=== PATIENT | male | born 1955 | race Caucasian/White ===

== ENCOUNTER 2018-03-31 09:21 | Inpatient (IN) | payer OTHER ==
[2018-03-31] VITALS (33 sets, daily range): BP systolic 91–140; BP diastolic 50–123
[~2018-03-31] VITALS: Ht 190.5 cm; Wt 162.5 kg
[2018-03-31] MEDS ORDERED: ALBUTEROL SULF 0.083% NEB SOLN 3 ML NEB NEB STA (09:37)
[2018-03-31] MEDS ORDERED: ALBUTEROL/IPRATROPIUM 3 ML NEB NEB ONE (09:45)
[2018-03-31 10:18] LABS: BASOPHILS % 0.4 % (0.0-1.0); EOSINOPHILS # (AUTO) 0.2 (0.0-0.4); EOSINOPHILS % 2.3 % (0.0-6.0); HEMATOCRIT 52.2 % (38.2-49.6); HEMOGLOBIN 17.3 g/dL (14.0-18.0); LYMPHOCYTES # (AUTO) 1.7 (1.0-3.2); LYMPHOCYTES % 18.1 % (18.0-39.1); MEAN CORPUSCULAR HEMOGLOBIN 32.1 pg (28-32); MEAN CORPUSCULAR HGB CONC 33.1 g/dL (31-35); MEAN CORPUSCULAR VOLUME 96.8 fL (81-99); MONOCYTES % 10.6 % (4.4-11.3); NEUTROPHILS # (AUTO) 6.5 (2.1-6.9); NEUTROPHILS % 68.3 % (38.7-80.0); PLATELET COUNT 170 x10e3/uL (140-360); RED BLOOD COUNT 5.39 x10e6/uL (4.3-5.7); RED CELL DISTRIBUTION WIDTH 12.9 % (11.7-14.4)
[2018-03-31 10:39] LABS: ALANINE AMINOTRANSFERASE 20 IU/L (0-55); ALBUMIN 3.9 g/dL (3.5-5.0); ALBUMIN/GLOBULIN RATIO 1.3 (0.8-2.0); ALKALINE PHOSPHATASE 110 IU/L (40-150); BLOOD UREA NITROGEN 11 mg/dL (7-26); BUN/CREATININE RATIO 11 (6-25); CALCIUM 10.8 mg/dL (8.4-10.2); CARBON DIOXIDE 32 mmol/L (22-29); CHLORIDE 96 mmol/L (98-107); CREATINE KINASE 254 IU/L (30-200); CREATININE, SERUM 0.97 mg/dL (0.72-1.25); EST GLOMERULAR FILTRATION RATE > 60 ML/MIN (60-); GLUCOSE 251 mg/dL (74-118); LIPASE 19 U/L (8-78); SODIUM 137 mmol/L (136-145)
[2018-03-31 10:46] LABS: ABG HCO3 35 mmol/L (23-28); ABG PCO2 73 mmHg (41-51); ABG PH 7.29 (7.31-7.41); ABG PO2 84 mmHg (80-105)
[2018-03-31] MEDS: ALBUTEROL/IPRATROPIUM 3 ML NEB NEB SCH ×2 (11:00→16:17)
[2018-03-31] MEDS ORDERED: LIDOCAINE JELLY 2% 10ML URO-JET ONE (11:06)
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
[2018-03-31 11:28] LABS: CLARITY,URINE SL CLOUDY (CLEAR); COLOR,URINE AMBER (YELLOW); KETONES,URINE TRACE (NEGATIVE); LEUKOCYTE ESTERASE ,URINE TRACE (NEGATIVE); NITRITE,URINE NEGATIVE (NEGATIVE); PROTEIN,URINE DIPSTICK 2+ (NEGATIVE); URINE UROBILINOGEN 0.2 mg/dL (0.2 - 1)
[2018-03-31 11:29] LABS: BILIRUBIN,URINE 1+ (NEGATIVE)
[2018-03-31 11:42] LABS: AMORPHOUS SEDIMENT,URINE RARE (FEW); EPITHELIAL CELLS,URINE FEW /LPF; RBC,URINE >50 /HPF (0-5); WBC,URINE (MAN) 0-5 /HPF (0-5)
[2018-03-31] MEDS ORDERED: CEFTRIAXONE SOD 2 GM VIAL IV SCH (12:45)
[2018-03-31] MEDS ORDERED: ETOMIDATE 2 MG/ML 10 ML INJ IV STA (12:56)
[2018-03-31] MEDS ORDERED: SUCCINYLCHOLINE 200 MG/10 ML SYR IV STA (12:56)
[2018-03-31] MEDS ORDERED: PROPOFOL IV EMULSION 10MG/ML 100 ML ONE (13:00)
[2018-03-31 13:04] LABS: ABG PH 7.29 (7.31-7.41)
[2018-03-31 13:05] LABS: ABG HCO3 35 mmol/L (23-28); ABG PCO2 72 mmHg (41-51); ABG PO2 79 mmHg (80-105)
[2018-03-31] MEDS: FENTANYL CITRATE INJ 2,000 MCG in SODIUM CHLORIDE 0.9% 250ML 210 ML IV PRN (13:10)
[2018-03-31] MEDS: MIDAZOLAM HCL 25 MG in SODIUM CHLORIDE 0.9% 50ML 45 ML IV PRN ×2 (13:10→21:40)
[2018-03-31] MEDS ORDERED: SODIUM CHLORIDE 0.9% 1000ML 1,000 ML ONE ×2 (13:58→21:22)
[2018-03-31] MEDS ORDERED: ROCURONIUM BROMIDE 10 MG/ML 5ML VIAL IV ONE (14:18)
[2018-03-31] MEDS ORDERED: ROCURONIUM BROMIDE 2 ML ONE (14:20)
--- NOTE | 2018-03-31 14:24 | Diagnostic Imaging Report ---
EXAMINATION: CHEST SINGLE (PORTABLE) INDICATION: \S\ARF \[id number] \S\[id number] COMPARISON: None FINDINGS: AP view TUBES and LINES: Endotracheal tube overlying the mid trachea with tip 4 cm above the nida. LUNGS: Low lung volumes. Patchy airspace opacities remain in both lung bases. Bilateral interstitial edema. PLEURA: Possible small left pleural effusion. No pneumothorax. HEART AND MEDIASTINUM: Mild enlargement of the cardiac silhouette. BONES AND SOFT TISSUES: No acute osseous lesion. Soft tissues are unremarkable. UPPER ABDOMEN: No free air under the diaphragm. IMPRESSION: Mild cardiomegaly with associated interstitial edema. Denser patchy opacities in both lung bases may represent aspiration or infection. Signed by: Dr. Jyothi Gomez M.D. on 03/31/2018 2:21 PM
[2018-03-31 15:36] LABS: ABG PCO2 50 mmHg (41-51); ABG PH 7.44 (7.31-7.41); ABG PO2 321 mmHg (80-105)
[2018-03-31 15:37] LABS: ABG HCO3 34 mmol/L (23-28)
[2018-03-31] MEDS: FAMOTIDINE 20 MG/2 ML VIAL IV SCH (16:35)
[2018-03-31] MEDS: AZITHROMYCIN 500MG/NS 250 ML 250 ML IV SCH (16:35)
[2018-03-31] MEDS ORDERED: METOPROLOL TART25 MG PO (17:13)
[2018-03-31] MEDS ORDERED: LISINOPRIL10 MG PO (17:13)
[2018-03-31] MEDS ORDERED: FLUOXETINE HCL20 MG PO (17:13)
[2018-03-31] MEDS ORDERED: LAMOTRIGINE200 MG PO (17:13)
[2018-03-31] MEDS ORDERED: METFORMIN HCL500 MG PO (17:13)
[2018-03-31] MEDS ORDERED: SUCCINYLCHOLINE CHLORIDE 20 MG/ML 10ML VIAL ONE (19:17)
[2018-03-31] MEDS ORDERED: ETOMIDATE 40 MG/ 20ML VIAL IV ONE (19:17)
[2018-03-31 19:39] LABS: CREATINE KINASE MB 4.4 ng/mL (0-5.0)
[2018-03-31] MEDS ORDERED: SODIUM CHLORIDE 0.9% 1000ML 1,000 ML IV ONE (21:15)
--- NOTE | 2018-03-31 21:27 | Consultation ---
DATE OF CONSULTATION: March 31, 2018 REASON FOR CONSULTATION: Shortness of breath. HPI: Mr. Melchor is a 62-year-old male never been before here, presented to the emergency room with worsening shortness of breath. Patient is currently intubated sedated and the source of history is the chart. According to the emergency room chart, patient smokes 3 packs per day. She was having hallucination, confusion, and worsening mental status, so he was brought into the emergency room. He denies any cough or chills. In the emergency room, patient's blood gas was pH of 7.29, pCO2 of 73, pO2 84, O2 sat 94%, bicarb has been 32. REVIEW OF SYSTEMS: Unable to elicit any as patient is intubated, sedated. PAST MEDICAL HISTORY: Body habitus suggestive of obstructive sleep apnea, diabetes, hypertension, congestive heart failure. PAST SURGICAL HISTORY: Unknown. FAMILY AND SOCIAL HISTORY: Smoker, lives with , 3 packs per day. PHYSICAL EXAM VITALS: Temperature 96.7, pulse of 62, blood pressure 135/82, respiratory rate of 22. HEENT: Head atraumatic, normocephalic. NECK: Supple. CHEST: Crackles bilaterally. HEART: S1, S2 audible. ABDOMEN: Soft. EXTREMITIES: Pedal edema. NEUROLOGIC: Sedated, intubated. BNP was 20.5. Chest X-RAY: Reviewed, is showing bilateral alveolar infiltrate, dense base infiltrate, most on the right side. ASSESSMENT AND PLAN: Mr. Melchor is a 62-year-old male, who presented to the emergency room with worsening shortness of breath. CURRENT PROBLEMS 1. Ecuin-gy-pcrinsc hypoxic hypercapnic respiratory failure. 2. Pneumonia. 3. Hypertension. 4. Morbid obesity. 5. High likelihood of obstructive sleep apnea. PLAN 1. Ventilator setting reviewed. Continue the patient on current ventilator setting. pH is 7.4 and pCO2 with oxygen of 321. 2. IV antibiotics as ordered, Rocephin and azithromycin. Patient is coming from home. That should cover the pneumonia. 3. Fentanyl and Versed for sedation. 4. Nebulizer treatment, which has been ordered. 5. I will start the patient on Lovenox subcutaneous for DVT prophylaxis. CRITICAL CARE TIME SPENT: 50 minutes. Job#: [id number] CQ
[2018-03-31] MEDS: PIPER-TAZ 3.375 GM 50 ML IV SCH (21:39)
[2018-04-01] VITALS (81 sets, daily range): BP systolic 95–201; BP diastolic 62–117
[2018-04-01 02:51] LABS: CREATINE KINASE MB 3.2 ng/mL (0-5.0)
[2018-04-01 04:56] LABS: BASOPHILS % 0.3 % (0.0-1.0); EOSINOPHILS # (AUTO) 0.2 (0.0-0.4); EOSINOPHILS % 2.5 % (0.0-6.0); HEMATOCRIT 45.8 % (38.2-49.6); HEMOGLOBIN 15.2 g/dL (14.0-18.0); LYMPHOCYTES # (AUTO) 1.6 (1.0-3.2); LYMPHOCYTES % 19.8 % (18.0-39.1); MEAN CORPUSCULAR HEMOGLOBIN 32.1 pg (28-32); MEAN CORPUSCULAR HGB CONC 33.2 g/dL (31-35); MEAN CORPUSCULAR VOLUME 96.6 fL (81-99); MONOCYTES # (AUTO) 0.8 (0.2-0.8); MONOCYTES % 10.3 % (4.4-11.3); NEUTROPHILS # (AUTO) 5.3 (2.1-6.9); NEUTROPHILS % 66.8 % (38.7-80.0); PLATELET COUNT 138 x10e3/uL (140-360); RED BLOOD COUNT 4.74 x10e6/uL (4.3-5.7); RED CELL DISTRIBUTION WIDTH 13.1 % (11.7-14.4)
[2018-04-01 05:15] LABS: ANION GAP 12.5 mmol/L (8-16); BLOOD UREA NITROGEN 13 mg/dL (7-26); BUN/CREATININE RATIO 17 (6-25); CALCIUM 9.3 mg/dL (8.4-10.2); CARBON DIOXIDE 28 mmol/L (22-29); CHLORIDE 103 mmol/L (98-107); CREATININE, SERUM 0.76 mg/dL (0.72-1.25); EST GLOMERULAR FILTRATION RATE > 60 ML/MIN (60-); GLUCOSE 179 mg/dL (74-118); POTASSIUM 3.5 mmol/L (3.5-5.1); SODIUM 140 mmol/L (136-145)
[2018-04-01] MEDS: PIPER-TAZ 3.375 GM 50 ML IV SCH ×3 (05:38→21:47)
[2018-04-01] MEDS ORDERED: DEXTROSE 50% SYRINGE 50 ML IV PRN (09:15)
[2018-04-01] MEDS: INSULIN LISPRO 100 UNIT/1 ML 3ML VIAL SQ SCH ×3 (09:15→18:11)
[2018-04-01] MEDS: FAMOTIDINE 20 MG/2 ML VIAL IV SCH ×2 (09:31→16:07)
[2018-04-01] MEDS: SOD CHL 0.45%/POT CHL 20MEQ 1,000 ML IV SCH ×2 (09:36→20:24)
[2018-04-01] MEDS: INSULIN DETEMIR 100 UNIT/ML PEN SQ SCH ×2 (09:38→21:44)
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
[2018-04-01 10:11] LABS: ABG HCO3 32 mmol/L (23-28); ABG PCO2 47 mmHg (41-51); ABG PH 7.44 (7.31-7.41); ABG PO2 69 mmHg (80-105)
[2018-04-01] MEDS: METHYLPREDNISOLONE SOD SUCC 40 MG/ML VIAL IV SCH ×2 (13:43→21:47)
[2018-04-01] MEDS: AZITHROMYCIN 500MG/NS 250 ML 250 ML IV SCH (13:43)
[2018-04-01] MEDS: DEXMEDETOMIDINE HCL 200 MCG in SODIUM CHLORIDE 0.9% 50ML 48 ML IV PRN ×4 (15:56→23:25)
[2018-04-01] MEDS: ENOXAPARIN SOD INJ 40 MG/0.4 ML SYR SC SCH (16:07)
[2018-04-01] MEDS ORDERED: SODIUM CHLORIDE 0.9% 1000ML 1,000 ML IV SCH (21:15)
[2018-04-01] MEDS ORDERED: ENALAPRILAT IV INJ 1.25 MG/ML VIAL IV PRN (22:45)
[2018-04-01] MEDS: AMLODIPINE BESYLATE 5 MG TAB PO SCH (22:46)
[2018-04-01] MEDS ORDERED: MIDAZOLAM HCL 25 MG in SODIUM CHLORIDE 0.9% 50ML 45 ML IV PRN (23:00)
[2018-04-01] MEDS: FENTANYL CITRATE INJ 2,000 MCG in SODIUM CHLORIDE 0.9% 250ML 210 ML IV PRN (23:36)
[2018-04-02] VITALS (72 sets, daily range): BP systolic 103–209; BP diastolic 71–124
[2018-04-02] MEDS: INSULIN LISPRO 100 UNIT/1 ML 3ML VIAL SQ SCH ×4 (01:21→16:33)
[2018-04-02] MEDS ORDERED: NICARDIPINE 20MG/200ML PREMIX 200 ML ONE (01:27)
[2018-04-02] MEDS: NICARDIPINE 20MG/200ML PREMIX 200 ML IV PRN ×2 (01:38→06:39)
[2018-04-02] MEDS: DEXMEDETOMIDINE HCL 200 MCG in SODIUM CHLORIDE 0.9% 50ML 48 ML IV PRN ×4 (01:41→08:43)
[2018-04-02 04:47] LABS: HEMATOCRIT 51.9 % (38.2-49.6); HEMOGLOBIN 17.3 g/dL (14.0-18.0); MEAN CORPUSCULAR HEMOGLOBIN 31.6 pg (28-32); MEAN CORPUSCULAR HGB CONC 33.3 g/dL (31-35); MEAN CORPUSCULAR VOLUME 94.7 fL (81-99); PLATELET COUNT 146 x10e3/uL (140-360); RED BLOOD COUNT 5.48 x10e6/uL (4.3-5.7); RED CELL DISTRIBUTION WIDTH 12.6 % (11.7-14.4)
[2018-04-02 05:04] LABS: ALANINE AMINOTRANSFERASE 17 IU/L (0-55); ALBUMIN 3.2 g/dL (3.5-5.0); ALKALINE PHOSPHATASE 97 IU/L (40-150); ANION GAP 16.4 mmol/L (8-16); BLOOD UREA NITROGEN 11 mg/dL (7-26); BUN/CREATININE RATIO 15 (6-25); CALCIUM 9.4 mg/dL (8.4-10.2); CARBON DIOXIDE 22 mmol/L (22-29); CHLORIDE 103 mmol/L (98-107); CREATININE, SERUM 0.73 mg/dL (0.72-1.25); EST GLOMERULAR FILTRATION RATE > 60 ML/MIN (60-); GLUCOSE 243 mg/dL (74-118); POTASSIUM 4.4 mmol/L (3.5-5.1); SODIUM 137 mmol/L (136-145)
[2018-04-02] MEDS: SOD CHL 0.45%/POT CHL 20MEQ 1,000 ML IV SCH (05:05)
[2018-04-02 05:21] LABS: MAGNESIUM 1.7 MG/DL (1.3-2.1); PHOSPHORUS 2.9 MG/DL (2.3-4.7)
[2018-04-02] MEDS: METHYLPREDNISOLONE SOD SUCC 40 MG/ML VIAL IV SCH ×3 (05:32→20:49)
[2018-04-02] MEDS: PIPER-TAZ 3.375 GM 50 ML IV SCH ×3 (05:32→20:49)
[2018-04-02 05:43] LABS: THYROID STIMULATING HORMONE 0.965 uIU/mL (0.350-4.940)
[2018-04-02 06:08] LABS: FOLATE 14.7 ng/mL (7.0-15.4)
[2018-04-02] MEDS ORDERED: NITROGLYCERIN 0.4 MG SUBL SL PRN (06:30)
[2018-04-02] MEDS ORDERED: METOPROLOL TARTRATE INJ 1 MG/ML VIAL IV PRN (06:30)
[2018-04-02 06:38] LABS: LYMPHOCYTES % (MANUAL) 14 % (19-48); MONOCYTES % (MANUAL) 2 % (3.4-9.0); NEUTROPHILS % (MANUAL) 84 % (40-74); PLATELET ESTIMATE ADEQUATE; PLATELET MORPHOLOGY COMMENT NORMAL; RBC MORPHOLOGY COMMENT NORMAL
[2018-04-02 07:03] LABS: BILIRUBIN,DIRECT 0.2 mg/dL (0.0-0.5); CHOL/HDL RATIO 4.1 (3.9-4.7)
--- NOTE | 2018-04-02 08:36 | Diagnostic Imaging Report ---
EXAMINATION: CHEST SINGLE (PORTABLE) INDICATION: \S\mechanically ventilated COMPARISON: Chest x-ray 03/31/2018 FINDINGS: AP view TUBES and LINES: Tip of the endotracheal tube remains in good position measuring 5.6 cm above the nida. Nasogastric tube courses below the diaphragm. LUNGS: Lungs are well inflated. There are bibasilar atelectasis. Slight increase in left lung base airspace opacity. There is perihilar interstitial opacities, consistent with interstitial edema. PLEURA: Unchanged small left pleural effusion. HEART AND MEDIASTINUM: Cardiac size is mildly enlarged. There are atherosclerotic calcifications within the aorta. BONES AND SOFT TISSUES: No acute osseous lesion. Soft tissues are unremarkable. UPPER ABDOMEN: No free air under the diaphragm. IMPRESSION: 1. Stable mild cardiomegaly with interstitial edema. 2. Slightly more focal patchy airspace opacities in the lung bases especially the left lung base. This may represent aspiration or infection. Signed by: Dr. Yrn Nance M.D. on 04/02/2018 8:32 AM
[2018-04-02] MEDS: INSULIN DETEMIR 100 UNIT/ML PEN SQ SCH ×2 (08:37→20:58)
[2018-04-02] MEDS: FAMOTIDINE 20 MG/2 ML VIAL IV SCH ×2 (08:37→16:08)
[2018-04-02] MEDS: AMLODIPINE BESYLATE 5 MG TAB PO SCH ×2 (08:39→20:44)
[2018-04-02 09:29] LABS: ABG HCO3 26 mmol/L (23-28); ABG PCO2 53 mmHg (41-51); ABG PH 7.29 (7.31-7.41); ABG PO2 77 mmHg (80-105)
[2018-04-02] MEDS ORDERED: FUROSEMIDE INJ 10 MG/ML 4 ML VIAL IV ONE (10:30)
[2018-04-02] MEDS: LEVALBUTEROL HCL SOLN NEBU 1.25 MG/3 ML NEB INH SCH ×3 (11:45→19:20)
[2018-04-02] MEDS: IPRATROPIUM BROMIDE 0.02% 2.5 ML NEB NEB SCH ×3 (11:45→19:20)
[2018-04-02] MEDS: AZITHROMYCIN 500MG/NS 250 ML 250 ML IV SCH (12:58)
[2018-04-02] MEDS: LISINOPRIL 10 MG TAB PO SCH (13:30)
[2018-04-02] MEDS: ENOXAPARIN SOD INJ 40 MG/0.4 ML SYR SC SCH (16:08)
[2018-04-02] MEDS: NICOTINE 21 MG/EA PATCH TOP SCH (16:10)
[2018-04-03] VITALS (15 sets, daily range): BP systolic 121–176; BP diastolic 69–96
[2018-04-03] MEDS: INSULIN LISPRO 100 UNIT/1 ML 3ML VIAL SQ SCH ×4 (00:38→18:09)
[2018-04-03] MEDS: LEVALBUTEROL HCL SOLN NEBU 1.25 MG/3 ML NEB INH SCH ×4 (02:50→19:38)
[2018-04-03] MEDS: IPRATROPIUM BROMIDE 0.02% 2.5 ML NEB NEB SCH ×4 (02:50→19:38)
[2018-04-03] MEDS: PIPER-TAZ 3.375 GM 50 ML IV SCH ×3 (06:43→21:42)
[2018-04-03] MEDS: METHYLPREDNISOLONE SOD SUCC 40 MG/ML VIAL IV SCH (06:43)
[2018-04-03] MEDS: LISINOPRIL 10 MG TAB PO SCH (09:00)
[2018-04-03] MEDS: AMLODIPINE BESYLATE 5 MG TAB PO SCH ×2 (09:00→21:00)
[2018-04-03] MEDS: HYDRALAZINE HCL 20 MG/ML VIAL IV PRN (09:28)
[2018-04-03] MEDS: FAMOTIDINE 20 MG/2 ML VIAL IV SCH ×2 (09:47→18:08)
[2018-04-03] MEDS: INSULIN DETEMIR 100 UNIT/ML PEN SQ SCH ×2 (09:48→21:00)
[2018-04-03] MEDS: ENOXAPARIN SOD INJ 40 MG/0.4 ML SYR SC SCH (18:08)
[2018-04-03] MEDS ORDERED: METHYLPREDNISOLONE SOD SUCC 40 MG/ML VIAL IV SCH (21:00)
[2018-04-04] VITALS: BP 195/88
[2018-04-04] MEDS: HYDRALAZINE HCL 20 MG/ML VIAL IV PRN (00:45)
[2018-04-04] MEDS: IPRATROPIUM BROMIDE 0.02% 2.5 ML NEB NEB SCH ×2 (01:25→07:08)
[2018-04-04] MEDS: LEVALBUTEROL HCL SOLN NEBU 1.25 MG/3 ML NEB INH SCH ×2 (01:25→07:08)
[2018-04-04 04:00] VITALS: BP 183/88
[2018-04-04] MEDS: INSULIN LISPRO 100 UNIT/1 ML 3ML VIAL SQ SCH ×3 (06:00→11:45)
[2018-04-04] MEDS: PIPER-TAZ 3.375 GM 50 ML IV SCH (06:04)
[2018-04-04] MEDS ORDERED: SODIUM CHLORIDE 0.9% 250ML 250 ML ONE (06:14)
[2018-04-04 08:08] VITALS: BP 132/87
[2018-04-04] MEDS: LISINOPRIL 10 MG TAB PO SCH (09:00)
[2018-04-04] MEDS ORDERED: AZITHROMYCIN 250 MG TAB PO SCH (09:00)
[2018-04-04] MEDS: NICOTINE 21 MG/EA PATCH TOP SCH (09:00)
[2018-04-04] MEDS: AMLODIPINE BESYLATE 5 MG TAB PO SCH (09:00)
[2018-04-04] MEDS: FAMOTIDINE 20 MG/2 ML VIAL IV SCH (09:00)
[2018-04-04] MEDS: INSULIN DETEMIR 100 UNIT/ML PEN SQ SCH (09:00)
[2018-04-04 09:24] LABS: BASOPHILS % 0.3 % (0.0-1.0); EOSINOPHILS % 0.1 % (0.0-6.0); HEMATOCRIT 49.4 % (38.2-49.6); HEMOGLOBIN 16.7 g/dL (14.0-18.0); LYMPHOCYTES # (AUTO) 1.7 (1.0-3.2); LYMPHOCYTES % 14.3 % (18.0-39.1); MEAN CORPUSCULAR HEMOGLOBIN 32.2 pg (28-32); MEAN CORPUSCULAR HGB CONC 33.8 g/dL (31-35); MEAN CORPUSCULAR VOLUME 95.2 fL (81-99); MONOCYTES # (AUTO) 1.2 (0.2-0.8); MONOCYTES % 10.1 % (4.4-11.3); NEUTROPHILS # (AUTO) 8.7 (2.1-6.9); NEUTROPHILS % 74.9 % (38.7-80.0); PLATELET COUNT 159 x10e3/uL (140-360); RED BLOOD COUNT 5.19 x10e6/uL (4.3-5.7); RED CELL DISTRIBUTION WIDTH 13.2 % (11.7-14.4)
[2018-04-04 09:49] LABS: ANION GAP 17.8 mmol/L (8-16); BLOOD UREA NITROGEN 10 mg/dL (7-26); BUN/CREATININE RATIO 13 (6-25); CALCIUM 9.9 mg/dL (8.4-10.2); CARBON DIOXIDE 25 mmol/L (22-29); CHLORIDE 99 mmol/L (98-107); EST GLOMERULAR FILTRATION RATE > 60 ML/MIN (60-); GLUCOSE 247 mg/dL (74-118); POTASSIUM 3.8 mmol/L (3.5-5.1); SODIUM 138 mmol/L (136-145)
[2018-04-04] MEDS ORDERED: COMPACT COMPRE1 EACH ×2 (09:57→10:10)
[2018-04-04] MEDS ORDERED: CLINDAMYCIN HC300 MG PO (09:59)
[2018-04-04] MEDS ORDERED: NORVASC10 MG (10:00)
[2018-04-04] MEDS ORDERED: GLUCOTROL5 MG PO (10:01)
[2018-04-04] MEDS ORDERED: PREDNISONE5 MG PO (10:01)
[2018-04-04] MEDS ORDERED: TESSALON PERLE100 MG PO (10:02)
[2018-04-04] MEDS ORDERED: IPRAT-ALBUT 0.5-3 ML INH (10:04)
--- NOTE | 2018-04-04 10:08 | Discharge Summary ---
PCP: Dr. Ct Bernal CONSULTANTS: Dr. Sylvain Yuan and Dr. Kenneth Willingham. FINAL DIAGNOSES 1. Status post respiratory failure, intubation and extubation secondary to acute exacerbation of chronic obstructive pulmonary disease secondary to hypercapnia and hypoxia. 2. Baseline chronic obstructive pulmonary disease with 3-pack per day smoker for many years. 3. Obesity. 4. Diabetes, type 2. 5. Hypertension. 6. Uncontrolled hypertension. 7. Uncontrolled diabetes with glycohemoglobin A1c of 8. SUMMARY: A 62-year-old male came in with respiratory failure secondary to hypercapnic stage along with acute hypoxia secondary acute exacerbation of COPD. The patient may have aspirated slightly. His white cell count is normal. The patient stable. He was just extubated a few days ago. Now, he is ambulatory and able to communicate and anxious. However, wanted to go home today. The patient is stable. His lung examination is much improved. Patient will go home today after tolerating diet. Medication prescriptions given with: 1. Nebulizer of DuoNeb. 2. Clindamycin 300 mg 3 times a day for 7 days. 3. Norvasc 10 mg daily. 4. Prednisone 5 mg daily for 10 days. 5. Glucotrol XL 5 mg daily. 6. Tessalon Perles 100 mg q.6 h. p.r.n. for cough. Patient is stable. Advised the patient to follow up with Dr. Kenneth Willingham for his pulmonary followup and Dr. Bernal for his primary care physician. Follow up for medication reconciliation. Job#: [id number] CASSANDRA
[2018-04-04 10:20] VITALS: BP 132/87
[2018-04-04 11:43] VITALS: BP 118/97
[2018-04-05] MEDS ORDERED: METHYLPREDNISOLONE SOD SUCC 40 MG/ML VIAL IV SCH (07:30)
--- NOTE | 2018-04-05 12:18 | Diagnostic Imaging Report ---
PROCEDURE:X-RAY ABDOMEN - KUB COMPARISON:None. INDICATIONS:OGT PLACEMENT FINDINGS: Enteric tube terminates in the distal stomach. Visualization of the abdomen is limited by portable technique. There is a non-obstructed bowel-gas pattern. There are no acute osseous abnormalities. CONCLUSION: Enteric tube terminates in the distal stomach. Dictated by: ABHI DUVAL M.D. on 04/01/2018 at 10:47 Electronically approved by: ABHI DUVAL M.D. on 04/01/2018 at 10:47
--- NOTE | 2018-04-05 12:18 | Diagnostic Imaging Report ---
PROCEDURE: A single AP view of the chest. COMPARISON: Chest radiograph 03/31/18. INDICATIONS: HYPERCAPNIC RESPIRATORY FAILURE FINDINGS: TUBES and LINES: Endotracheal tube overlying the upper trachea with tip 6 cm above the nida. Interval placement of enteric tube coursing into the stomach, the tip is not seen. LUNGS: Increased lung volumes from prior radiograph. Bilateral interstitial opacities with patchy consolidative opacities in the lung bases PLEURA: Possible small left pleural effusion. No pneumothorax. HEART AND MEDIASTINUM: Mild enlargement of the cardiac silhouette. BONES AND SOFT TISSUES: Multiple right sided rib fractures, with associated deformity involving the right third, fourth, fifth, sixth, seventh, and eighth ribs. There may be mild displacement. UPPER ABDOMEN: No free air under the diaphragm. IMPRESSION: Multiple right sided rib fractures, with possible displacement or deformity, of uncertain chronicity. No evidence of pneumothorax. Mild cardiomegaly with associated interstitial edema. Patchy bibasilar consolidation may represent aspiration or pneumonia in the appropriate clinical setting. Dictated by: ABHI DUVAL M.D. on 04/01/2018 at 10:36 Electronically approved by: ABHI DUVAL M.D. on 04/01/2018 at 10:36
== END 2018-04-04 12:03 | disposition home or self-care (01) | DRG 208 ==
LOC: ER 09:21 → ERHOLD 12:40 → ICU 15:53 → MED/SURG2 04-03 10:26
PROVIDERS: ADMIT Internal Medicine; ATTEND Internal Medicine
PROC: 5A1945Z Respiratory Ventilation, 24-96 Consecutive Hours (ICD-10-PCS; principal; 2018-03-31)
PROC: 0BH17EZ Insertion of Endotracheal Airway into Trachea, Via Natural or Artificial Opening (ICD-10-PCS; 2018-03-31)
DX: J96.21 Acute and chronic respiratory failure with hypoxia (principal); J18.9 Pneumonia, unspecified organism; J44.1 Chronic obstructive pulmonary disease with (acute) exacerbation; Z68.41 Body mass index [BMI] 40.0-44.9, adult; J96.22 Acute and chronic respiratory failure with hypercapnia; E66.01 Morbid (severe) obesity due to excess calories; F17.210 Nicotine dependence, cigarettes, uncomplicated; I11.0 Hypertensive heart disease with heart failure; I50.9 Heart failure, unspecified; Z79.4 Long term (current) use of insulin; I25.10 Atherosclerotic heart disease of native coronary artery without angina pectoris; G47.33 Obstructive sleep apnea (adult) (pediatric); Z87.820 Personal history of traumatic brain injury; E11.65 Type 2 diabetes mellitus with hyperglycemia
CPT/HCPCS: 31500; 36415; 36600; 51700; 70450; 71045; 74018; 80048; 80053; 80061; 81001; 82248; 82306; 82550; 82553; 82607; 82746; 82805; 82948; 83036; 83605; 83690; 83735; 83880; 84100; 84443; 84484; 84550; 85007; 85025; 85027; 93005; 93306; 94002; 94003; 94640; 94660; 96372; 99284; J0330; J0360; J0456; J0696; J1650; J1940; J2250; J2543; J2920; J7030; J7050